=== PATIENT | female | born 1950 | race Caucasian/White ===

== ENCOUNTER → 2020-02-07 | Outpatient (CLI) | payer MEDICARE ==
--- NOTE | 2020-02-07 11:55 | CARD ---
MR#: [id number] Date of Study: 02/07/2020 Ordering Physician: SHE LICEA, Referring Physician: SHE LICEA Tech: Gretta Maynard SARITA APPROVED REPORT EXAM: Two-dimensional and M-mode echocardiogram with Doppler and color Doppler. Other Information Quality : Good INDICATION Hypertension/HCVD 2D DIMENSIONS RVDd3.1 (2.9-3.5cm)Left Atrium(2D)3.5 (1.6-4.0cm) IVSd1.0 (0.7-1.1cm)Aortic Root(2D)3.4 (2.0-3.7cm) LVDd5.4 (3.9-5.9cm)LVOT Diameter2.1 (1.8-2.4cm) PWd1.0 (0.7-1.1cm)LVDs3.4 (2.5-4.0cm) FS (%) 36.8 %SV93.0 ml LVEF(%)60.0 (>50%) Aortic Valve AoV Peak Natan.143.5cm/sAoV VTI28.1cm AO Peak GR.8.2mmHgLVOT Peak Natan.154.0cm/s LVOT VTI 32.94cmAO Mean GR.4mmHg ARNULFO (VMAX)3.49jr1GZZ (VTI)4.02cm2 AI P 1/2 [id number] Mitral Valve MV E Rifkwetm16.5cm/sMV DECEL [id number] MV A Tqrsdeju10.9cm/sE/A Ratio1.5 Tricuspid Valve TR P. Lcaprfde819cj/sRAP XQJMEJWC1awWo TR Peak Gr.02zeVcCZZL66dpMg Pulmonary Vein S1 Zxeljwct00.0cm/sD2 Rbhejrrk43.1cm/s LEFT VENTRICLE The left ventricle is normal size. There is normal left ventricular wall thickness. The left ventricu lar systolic function is normal and the ejection fraction is within normal range. The Ejection Fracti on is 55%. There is normal LV segmental wall motion. Tissue Doppler imaging reveals moderate left benito tricular diastolic dysfunction. RIGHT VENTRICLE The right ventricle is normal size. The right ventricular systolic function is normal. ATRIA The left atrium size is normal. The right atrium size is normal. The interatrial septum is intact wit h no evidence for an atrial septal defect or patent foramen ovale as noted on 2-D or Doppler imaging. AORTIC VALVE The aortic valve is calcified but opens well. Doppler and Color Flow revealed mild aortic regurgitati on. There is no significant aortic valvular stenosis. MITRAL VALVE The mitral valve is calcified but opens well. Mitral annular calcification is mild. There is no evide nce of mitral valve prolapse. There is no mitral valve stenosis. Doppler and Color-flow revealed mild mitral regurgitation. TRICUSPID VALVE The tricuspid valve is normal in structure and function. Doppler and Color Flow revealed trace tricus pid regurgitation. The PA pressure was estimated at 30 mmHg. There is no tricuspid valve stenosis. PULMONIC VALVE Doppler and Color Flow revealed mild pulmonic valvular regurgitation. There is no pulmonic valvular s tenosis. GREAT VESSELS The aortic root is normal in size. The ascending aorta is mildly dilated at 3.6 cm. The IVC is normal in size and collapses >50% with inspiration. PERICARDIAL EFFUSION There is no evidence of significant pericardial effusion. Critical Notification Critical Value: No <Conclusion> The left ventricular systolic function is normal and the ejection fraction is within normal range. Th e Ejection Fraction is 55%. There is normal LV segmental wall motion. Doppler and Color Flow revealed mild aortic regurgitation. The ascending aorta is mildly dilated at 3.6 cm. Signed by : Rishi Isabel, Electronically Approved : 02/07/2020 11:55:14
== END | disposition home or self-care (01) ==
LOC: ECHO 10:42
PROVIDERS: ATTEND Internal Medicine
DX: I08.8 Other rheumatic multiple valve diseases (principal); I11.9 Hypertensive heart disease without heart failure
CPT/HCPCS: 93306